=== PATIENT | female | born 1955 | race Caucasian/White ===

== ENCOUNTER 2018-04-20 00:09 | Inpatient (IN) | payer BC ==
[2018-04-20] VITALS (9 sets, daily range): BP systolic 138–170; BP diastolic 69–77
[~2018-04-20] VITALS: Ht 162.6 cm; Wt 121.2 kg
--- NOTE | 2018-04-20 00:20 | NUR ---
Pt antony s/p fall at home 16 hours ago. She also reported falling 2 weeks ago and ended up with a wound on her scalp treated in [facility] on 04/[address]. Pt further states she has been feeling weak and not been able to walk recently. She is A, O/4, complains of severe pain on her back and bilateral knees, on RA. Awaiting to be seen and evaluated by Dr. Spann.
--- NOTE | 2018-04-20 00:35 | NUR ---
HL 20g started on lac, blood drawn and sent to lab
--- NOTE | 2018-04-20 00:47 | NUR ---
EKG in progress
[2018-04-20 00:51] LABS: BASOPHILS % (AUTO) 0.9 % (0.0-2.0); EOSINOPHILS % (AUTO) 0.8 % (0.0-6.0); HEMATOCRIT 30 % (33-45); HEMOGLOBIN 9.7 g/dL (11.5-14.8); LYMPHOCYTES # (AUTO) 0.6 /CMM (0.8-4.8); LYMPHOCYTES % (AUTO) 16.7 % (20.0-44.0); MEAN CORPUSCULAR HGB CONC 33 g/dl (31.0-36.0); MEAN CORPUSCULAR VOLUME 88 fL (82-100); MONOCYTES # (AUTO) 0.6 /CMM (0.1-1.30); MONOCYTES % (AUTO) 16.7 % (2.0-12.0); NEUTROPHILS # (AUTO) 2.5 /CMM (1.8-8.9); NEUTROPHILS % (AUTO) 64.9 % (43.0-81.0); PLATELET COUNT (AUTO) 193 /CMM (150-450); RED BLOOD CELL COUNT(AUTO) 3.35 MIL/uL (4.0-5.2); WHITE BLOOD COUNT (AUTO) 3.9 K/uL (4.3-11.0)
--- NOTE | 2018-04-20 00:55 | NUR ---
Pt trasnported to Radiology for imaging
[2018-04-20 00:57] LABS: CALCIUM, SERUM 8.5 mg/dL (8.5-10.1); CREATININE 1.3 mg/dL (0.6-1.3); POTASSIUM 3.4 mmol/L (3.5-5.1)
[2018-04-20] MEDS ORDERED: HYDROMORPHONE INJ 0.5 MG/0.5 ML SYRINGE ONE (00:58)
[2018-04-20] MEDS ORDERED: HYDROMORPHONE 1 MG/1 ML DISP.SYRIN IV ONE (01:00)
[2018-04-20] MEDS ORDERED: BLOOD SUGAR DIAGNOSTIC 1 EACH STRIP IN ONE (01:00)
[2018-04-20] MEDS ORDERED: IV NS 0.9% 1,000 ML BAG IV ONE (01:00)
[2018-04-20 01:02] LABS: ALBUMIN 2.6 g/dL (3.4-5.0); BILIRUBIN,TOTAL 0.3 mg/dL (0.2-1.0)
[2018-04-20 01:12] LABS: LYMPHOCYTES % (MANUAL) 18 % (16-48); MONOCYTES % (MANUAL) 12 % (0-11.0)
[2018-04-20 01:13] LABS: NEUTROPHILS % (MANUAL) 70 (42-76)
--- NOTE | 2018-04-20 01:36 | NUR ---
Back from Radiology
--- NOTE | 2018-04-20 02:45 | NUR ---
Pt voided freely on the bedpan
--- NOTE | 2018-04-20 02:50 | NUR ---
Pt will be adnmitted to [facility], Rm 315 under [facility]. Pt notified
--- NOTE | 2018-04-20 03:03 | NUR ---
Report given to JOSE MARIA Rosas
[2018-04-20] MEDS ORDERED: ZOLPIDEM TARTRATE 5 MG TABLET PO PRN (03:30)
[2018-04-20] MEDS ORDERED: MAGNESIUM HYDROXIDE 30 ML UDC PO PRN (03:30)
[2018-04-20] MEDS ORDERED: MAG HYDROX/AL HYDROX/SIMETH 30 ML UDC PO PRN (03:30)
[2018-04-20] MEDS ORDERED: ONDANSETRON HCL/PF 4 MG/2 ML VIAL IVP PRN (03:30)
[2018-04-20] MEDS ORDERED: Z GUARD REMEDY 2 OZ OINT TP PRN (03:30)
[2018-04-20] MEDS ORDERED: hydrALAZINE HCL IV 20 MG VIAL ONE (03:43)
[2018-04-20] MEDS ORDERED: hydrALAZINE HCL IV 20 MG VIAL IV PRN (04:00)
--- NOTE | 2018-04-20 04:15 | NUR ---
TELE R ADMISSION NOTES ADMITTED FROM ER THIS 62 Y.O. FEMALE VIA GURNEY WITH DX OF GENERALIZED WEAKNESS AND MULTIPLE FALLS WITH IN THIRTY DAYS.ALERT,ORIENTED X4,ABLE TO VERBALIZED NEEDS.LIVES ALONE IN A [place],OBESE 267.4 POUNDS.WITH MULTIPLE SKIN ISSUES,PICTURES ON CHART.WITH SALINE LOCK LEFT AC INTACT AND PATENT.NOTED PITTING EDEMA ON BOTH LOWER EXTREMITIES.DENIES PAIN AT THE MOMENT.CALL LIGHT IN REACH,NEEDS ANTICIPATED.
--- NOTE | 2018-04-20 04:25 | NUR ---
Transported pt to tele via thais Crane on ACLS protocol in stable condition.
[2018-04-20] MEDS: IV NS 0.9% 1,000 ML IV PRN (06:00)
--- NOTE | 2018-04-20 06:00 | NUR ---
WATER MECHANIC NOTES STARTED ON IVF NS AT 75ML/HR RATE
[2018-04-20] MEDS: POTASSIUM CL. PREMIX PERIPHER. 50 ML IV SCH ×4 (06:16→09:45)
--- NOTE | 2018-04-20 06:16 | NUR ---
TRANSFORMER COIL WINDER NOTES STARTED ON POTASSIUM IV 10MEQ FOR K LEVEL OF 3.4.TO INFUSE 3 MORE BAGS OF 10 MEQ
[2018-04-20] MEDS: HYDROMORPHONE INJ 2 MG/ML DISP.SYRIN IV PRN ×3 (06:27→20:39)
--- NOTE | 2018-04-20 06:27 | NUR ---
TECHNICAL ADMINISTRATIVE ASSISTANT NOTES PAIN MANAGEMENT C/O MID LOWER BACK PAIN 10/10 ON ON PAIN SCALE,MEDICATED WITH DILAUDID 0.5MG IV ORDERED
--- NOTE | 2018-04-20 06:47 | NUR ---
REPLENISHMENT ANALYST NOTES SR-79 ON TELE MONITOR,HOLD BREAKFAST TILL SEEN BY CARDIO.WOUND CONSULT TRIGGER,PAIN MANAGEMENT ADMINISTERED.IN NO ACUTE DISTRESS.WILL ENDORSE TO DAY NURSE FOR SHAYNA.
[2018-04-20 07:25] LABS: BASOPHILS % (AUTO) 1.2 % (0.0-2.0); EOSINOPHILS % (AUTO) 0.8 % (0.0-6.0); HEMATOCRIT 29 % (33-45); HEMOGLOBIN 9.5 g/dL (11.5-14.8); LYMPHOCYTES # (AUTO) 0.8 /CMM (0.8-4.8); MEAN CORPUSCULAR HGB CONC 33 g/dl (31.0-36.0); MEAN CORPUSCULAR VOLUME 87 fL (82-100); MONOCYTES # (AUTO) 0.6 /CMM (0.1-1.30); MONOCYTES % (AUTO) 15.4 % (2.0-12.0); NEUTROPHILS # (AUTO) 2.4 /CMM (1.8-8.9); NEUTROPHILS % (AUTO) 62.6 % (43.0-81.0); PLATELET COUNT (AUTO) 190 /CMM (150-450); RED BLOOD CELL COUNT(AUTO) 3.28 MIL/uL (4.0-5.2); WHITE BLOOD COUNT (AUTO) 3.9 K/uL (4.3-11.0)
[2018-04-20] MEDS: PANTOPRAZOLE 40 MG TABLET.DR PO SCH (07:32)
[2018-04-20] MEDS: HYDROCODONE/APAP 5/325MG 1 EACH TABLET PO PRN (07:33)
--- NOTE | 2018-04-20 07:40 | NUR ---
TOWER TRUCK DRIVER OPENING NOTES RECEIVED PT LAYING IN BED, RESTING. PT IS A/O X4, AFEBRILE. RESPIRATIONS ARE EVEN AND UNLABORED, NOT IN ANY ACUTE DISTRESS NOTED. PUPILS ARE REACTIVE TO LIGHT, BILATERAL HAND MACHINE MOLDER SQUEEZE ARE STRONG. C/O PAIN 18/10 TO LOWER BACK, MEDICATED PT WITH NORCO 5/325 1 TAB PO. WILL NOTE EFFECTIVENESS. IV SITE TO LAC INTACT, NO INFILTRATION NOTED. DRESSING KEPT CLEAN AND DRY. SAFETY MEASURES ARE IN PLACE. INSTRUCTED PT TO USE CALL LIGHT WHEN ASSISTANCE IS NEEDED, CALL LIGHT IS LEFT WITHIN REACH. WILL MONITOR THROUGHOUT SHIFT FOR CONTINUITY OF CARE.
[2018-04-20 07:51] LABS: CALCIUM, SERUM 8.2 mg/dL (8.5-10.1); CREATININE 1.3 mg/dL (0.6-1.3); MAGNESIUM 1.4 mg/dL (1.8-2.4); PHOSPHORUS 2.3 mg/dL (2.5-4.9); POTASSIUM 3.1 mmol/L (3.5-5.1)
[2018-04-20] MEDS ORDERED: PANT40TA4 PO (08:50)
[2018-04-20] MEDS ORDERED: GABA-532 PO (08:50)
[2018-04-20] MEDS ORDERED: VENL75CA62 PO (08:50)
[2018-04-20] MEDS ORDERED: HYDR-3895 PO (08:50)
[2018-04-20] MEDS ORDERED: OXYC15TA2 PO (08:50)
[2018-04-20] MEDS ORDERED: METF-440 PO (08:50)
--- NOTE | 2018-04-20 11:00 | NUR ---
MS RN NOTES-- RECEIVED A CALL FROM [facility] IN PHARMACY, TO NOTIFY DR. MASTERSON IF WE NEED TO REPEAT K LEVEL AFTER KCL HAS BEEN COMPLETED. PER DR. MASTERSON, "NO NEED." LABS ORDERED FOR TOMORROW.
[2018-04-20] MEDS: Magnesium 1GM/D5W 100ML PREMIX 100 ML IV SCH ×4 (11:09→14:15)
[2018-04-20] MEDS ORDERED: K PHOS NEUTRAL 250 MG TABLET PO ONE (13:30)
--- NOTE | 2018-04-20 15:15 | NUR ---
MS RN NOTES-- REMINDED DR. MASTERSON RE: MED LIST REVIEW.
--- NOTE | 2018-04-20 16:24 | NUR ---
MS RN NOTES-- PT NOTED WITH TEMP OF 100.4. PER DR. MASTERSON, BLOOD CULTURE THEN GIVE TYLENOL AFTER. BLOOD CULTURES ORDERED.
[2018-04-20] MEDS: ACETAMINOPHEN 325 MG TABLET PO PRN (17:14)
--- NOTE | 2018-04-20 18:17 | NUR ---
MS RN CLOSING NOTES ALL DUE MEDS GIVEN, NEEDS MET AND ANTICIPATED. PT IS A/O X4, AFEBRILE. RESPIRATIONS ARE EVEN AND UNLABORED, NOT IN ANY ACUTE DISTRESS NOTED. DENIES ANY CHEST PAIN, SOB, N/V. IV SITE TO LAC INTACT, NO INFILTRATION NOTED. DRESSING KEPT CLEAN AND DRY. ECHO DONE WITH 70% EF, DR. MASTERSON MADE AWARE. SAFETY MEASURES ARE IN PLACE. ENCOURAGED PT TO DRINK FLUIDS TOLERATED. REMINDED PT TO USE CALL LIGHT WHEN ASSISTANCE IS NEEDED, CALL LIGHT IS LEFT WITHIN REACH. WILL ENDORSE TO NEXT SHIFT FOR CONTINUITY OF CARE.
--- NOTE | 2018-04-20 19:55 | NUR ---
MS/EN OPENING NOTES RECEIVED PATIENT IN BED, RESTING COMFORTABLY IN BED, REQUESTED SLEEPING PILL AT BEDTIME AND WITH PAIN BUT REFUSE ANY PAIN MEDICATION AT THIS TIME. REQUIRE ASSISTANCE FOR SAFETY. CALL LIGHTS WITHIN REACH, BED LOCKED, WILL MONITOR.ON IV FLUIDS AT 75 CC/HR, LEFT AC GAUGE 20 WITH NO S/S OF INFILTRATION, RECEIVED ENDORSEMENT FROM AM RN FOR SHAYNA. WILL MONITOR.
--- NOTE | 2018-04-20 21:00 | NUR ---
ms/rn notes PATIENT REQUESTED FOR PAIN MEDICATION, DILAUDID GIVEN 0.25ML/0.5MG IVP, ALSO REQUESTING TO INFORM MD ABOUT MEDICATION PANTAPROZOLE TO BE TAKEN BID, BUT TAKING MORE THAN 3 MONTHS, PER MD IF MORE THAN 3 MOS ADVISED NOT TO GIVE BID PANTOPROZOLE. PATIENT MADE AWARE.
[2018-04-20] MEDS ORDERED: VENLAFAXINE XR 75 MG CAP.SR.24H PO SCH (22:00)
--- NOTE | 2018-04-21 06:37 | NUR ---
315-1 MS/RN NOTE PATIENT IN BED, ABLE TO VERBALIZE NEEDS, ASSISTED WITH REPOSITION AND TURNING, USES BED LARA , KEPT SKIN INTACT AND DRY, RESPIRATIONS EVEN AND UNLABORED. SKIN WARM TO TOUCH, PROVIDED FLUIDS, BED LOCKED, CALL LIGHTS WITHIN REACH, WILL MONITOR.WILL ENDORSE TO AM RN FOR SHAYNA.
[2018-04-21 06:40] LABS: CREATININE 1.1 mg/dL (0.6-1.3); MAGNESIUM 2.1 mg/dL (1.8-2.4); POTASSIUM 3.5 mmol/L (3.5-5.1)
[2018-04-21 07:01] LABS: CHOLESTEROL 140 mg/dL (<200); HDL CHOLESTEROL 47 mg/dL (40-60); LDL 73 mg/dL (0-99); TRIGLYCERIDES 120 mg/dL (30-150)
--- NOTE | 2018-04-21 07:43 | NUR ---
MS RN OPENING NOTES RECEIVED PT LAYING IN BED, RESTING. PT IS A/O X4, AFEBRILE. RESPIRATIONS ARE EVEN AND UNLABORED, NOT IN ANY ACUTE DISTRESS NOTED. DENIES ANY CHEST PAIN, N/V, SOB. IV SITE TO LAC INTACT, NO INFILTRATION NOTED. DRESSING KEPT CLEAN AND DRY. IV FLUIDS RUNNING AT 75ML/HR, TOLERATING WELL. SAFETY MEASURES ARE IN PLACE. INSTRUCTED PT TO USE CALL LIGHT WHEN ASSISTANCE IS NEEDED, CALL LIGHT IS LEFT WITHIN REACH. WILL MONITOR THROUGHOUT SHIFT FOR CONTINUITY OF CARE.
[2018-04-21 08:00] VITALS: BP 150/79
[2018-04-21] MEDS: PANTOPRAZOLE 40 MG TABLET.DR PO SCH (08:12)
[2018-04-21] MEDS: HYDROMORPHONE INJ 2 MG/ML DISP.SYRIN IV PRN ×4 (08:12→22:44)
--- NOTE | 2018-04-21 08:15 | NUR ---
MS RN NOTES-- PT SEEN AND EXAMINED BY DR. VELÁSUQEZ W/ ORDERS FOR LOVENOX 30MG DAILY. READ BACK AND VERIFIED. ORDERS NOTED AND CARRIED OUT.
--- NOTE | 2018-04-21 10:22 | NUR ---
MS RN NOTES-- PT SEEN BY PHYSICAL THERAPIST AND PT WAS SEEN WALKING AROUND THE UNIT USING FWW.
[2018-04-21 16:00] VITALS: BP 155/77
[2018-04-21] MEDS ORDERED: TOPI100T38 PO (16:52)
[2018-04-21] MEDS ORDERED: BACL10TA PO (16:52)
--- NOTE | 2018-04-21 18:07 | NUR ---
MS RN CLOSING NOTES ALL DUE MEDS GIVEN, NEEDS MET AND ANTICIPATED. PT IS A/O X4, AFEBRILE. RESPIRATIONS ARE EVEN AND UNLABORED, NOT IN ANY ACUTE DISTRESS NOTED. DENIES ANY CHEST PAIN, SOB, N/V. IV SITE TO LAC INTACT, NO INFILTRATION NOTED. DRESSING KEPT CLEAN AND DRY. SAFETY MEASURES ARE IN PLACE. ENCOURAGED PT TO DRINK FLUIDS TOLERATED. REMINDED PT TO USE CALL LIGHT WHEN ASSISTANCE IS NEEDED, CALL LIGHT IS LEFT WITHIN REACH. WILL ENDORSE TO NEXT SHIFT FOR CONTINUITY OF CARE.
--- NOTE | 2018-04-21 19:59 | NUR ---
MS/RN OPENING NOTES RECEIVED PATIENT IN BED, AWAKE, ALERT X3, RESTING COMFORTABLY IN BED, RECEIVED PAIN MEDICATION EARLIER BEFORE THE START OD SHIFT BUT STILL IN PAIN, NOTED GRIMACE. PATIENT ABLE TO VERBALIZE NEEDS, SKIN WARM TO TOUCH, REQUIRE EXTENSIVE ASSISTANCE, INFORMED ABOUT MEDICATION FOR BED TIME AND MEDICATIONS ORDERED. CALL LIGHTS WITHIN REACH. BED LOCKED. WILL MONITOR.
[2018-04-21 20:00] VITALS: BP_SYST 120; BP_SYST 186; BP_DIAS 56; BP_DIAS 60
[2018-04-21] MEDS: ENOXAPARIN SODIUM 30 MG/0.3 ML DISP.SYRIN SQ SCH (20:19)
--- NOTE | 2018-04-21 20:30 | NUR ---
recheck blood pressure at 155/78
[2018-04-21] MEDS: hydrOXYzine PAMOATE 25 MG CAPSULE PO SCH (21:44)
[2018-04-21] MEDS: GABAPENTIN 100 MG CAPSULE PO SCH (21:45)
[2018-04-21] MEDS: VENLAFAXINE XR 75 MG CAP.SR.24H PO SCH (21:56)
[2018-04-22] MEDS: HYDROCODONE/APAP 5/325MG 1 EACH TABLET PO PRN ×4 (02:13→17:10)
[2018-04-22] MEDS: HYDROMORPHONE INJ 2 MG/ML DISP.SYRIN IV PRN ×4 (03:38→20:34)
[2018-04-22] MEDS: IV NS 0.9% 1,000 ML IV PRN ×2 (03:50→17:16)
--- NOTE | 2018-04-22 04:07 | NUR ---
ms/rn notes pain medication administered due to severe pain reported in lower back of [address] pain, tblood pressure check at 138/62. will monitor pain relief,
[2018-04-22 04:27] VITALS: BP 135/70
--- NOTE | 2018-04-22 06:00 | NUR ---
MS/RN NOTES PATIENT ABLE TO SLEEP FEW HOURS, ON PAIN management monitoring. RESPIRATIONS EVEN AND UNLABORED, ASSISTED WITH ALL NEEDS. BED LOCKED. CALL LIGHTS WITHIN REACH, WILL MONITOR.
[2018-04-22 07:14] LABS: BASOPHILS % (AUTO) 0.4 % (0.0-2.0); EOSINOPHILS % (AUTO) 0.5 % (0.0-6.0); HEMATOCRIT 30 % (33-45); HEMOGLOBIN 9.8 g/dL (11.5-14.8); LYMPHOCYTES # (AUTO) 1.5 /CMM (0.8-4.8); LYMPHOCYTES % (AUTO) 36.2 % (20.0-44.0); MEAN CORPUSCULAR HGB CONC 33 g/dl (31.0-36.0); MEAN CORPUSCULAR VOLUME 87 fL (82-100); MONOCYTES # (AUTO) 0.6 /CMM (0.1-1.30); MONOCYTES % (AUTO) 13.1 % (2.0-12.0); NEUTROPHILS # (AUTO) 2.1 /CMM (1.8-8.9); NEUTROPHILS % (AUTO) 49.8 % (43.0-81.0); PLATELET COUNT (AUTO) 158 /CMM (150-450); RED BLOOD CELL COUNT(AUTO) 3.42 MIL/uL (4.0-5.2); WHITE BLOOD COUNT (AUTO) 4.2 K/uL (4.3-11.0)
--- NOTE | 2018-04-22 07:39 | NUR ---
MS/RN OPENING NOTE PATIENT IN BED IN STABLE CONDITION. A/O X 3. NO SIGNS OF ACUTE DISTRESS. NO COMPLAIN OF PAIN OR DISCOMFORT. ALL NEEDS ATTENDED TO. CALL LIGHT WITHIN REACH. WILL CONTINUE TO MONITOR TO ENSURE SAFETY.
[2018-04-22 07:46] LABS: CALCIUM, SERUM 8.1 mg/dL (8.5-10.1)
[2018-04-22 08:00] VITALS: BP 166/86
[2018-04-22] MEDS: TOPIRAMATE 100 MG TABLET PO SCH ×3 (08:28→17:10)
[2018-04-22] MEDS: BACLOFEN (10 MG) 10 MG TABLET PO SCH ×3 (08:28→17:10)
[2018-04-22] MEDS: PANTOPRAZOLE 40 MG TABLET.DR PO SCH ×2 (08:28→17:10)
[2018-04-22] MEDS: ALBUTEROL FS 2.5 MG/3 ML VIAL.NEB NEB PRN ×3 (08:52→23:35)
[2018-04-22] MEDS ORDERED: PANTOPRAZOLE 40 MG TABLET.DR PO SCH (09:00)
[2018-04-22] MEDS: POTASSIUM CHLORIDE 20 MEQ TAB.PRT.SR PO SCH ×3 (10:11→12:45)
--- NOTE | 2018-04-22 10:20 | NUR ---
MS/RN PATIENT REFUSED NORCO FOR PAIN MEDS, AND REQUESTED FOR DILAUDID, NORCO ALREADY OPENED THEREFORE WASTED AND WITNESSED BY EMILI MOISE.
--- NOTE | 2018-04-22 12:05 | NUR ---
MS/RN SPOKE WITH SERENITY FROM [facility] AND VERIFIED PATIENT'S PROTONIX ORDER AND DOSAGE PER KATIE ITS PROTONIX 40MG PO BID AC MEALS. DR. MASTERSON NOTIFIED REGARDING ORDERS.
[2018-04-22 15:58] VITALS: BP 151/80
--- NOTE | 2018-04-22 18:25 | NUR ---
MS/RN CLOSING NOTE PATIENT IN BED IN STABLE CONDITION. A/O X 4. NO SIGNS OF ACUTE DISTRESS. NO COMPLAIN OF PAIN OR DISCOMFORT. ALL NEEDS ATTENDED TO. CALL LIGHT WITHIN REACH. WILL ENDORSE TO NEXT SHIFT FOR CONTINUITY OF CARE.
--- NOTE | 2018-04-22 19:40 | NUR ---
MS/RN OPENING NOTES PT RECEIVED AWAKE, HOB ELEVATED IN BED. ON ROOM AIR, BREATHING EVEN AND UNLABORED. DENIES SOB. PAIN TO LOWER BACK NOTED TO BE 12/10. MADE AWARE THAT PAIN MEDS NOT DUE YET, BUT ONCE DUE AND V/S STABLE, CAN HAVE PRN DILAUDID PER REQUEST. VERBALIZED UNDERSTANDING. IV TO RFA PATENT AND INTACT RUNNING IVF ORDERED. BED IN LOW/LOCKED POSITION WITH CALL LIGHT IN REACH, BILATERAL UPPER SIDE RAILS IN PLACE. WILL CONTINUE TO MONITOR
[2018-04-22 20:00] VITALS: BP 136/73
[2018-04-22] MEDS: VENLAFAXINE XR 75 MG CAP.SR.24H PO SCH (21:46)
[2018-04-22] MEDS: hydrOXYzine PAMOATE 25 MG CAPSULE PO SCH (21:46)
[2018-04-22] MEDS: ENOXAPARIN SODIUM 30 MG/0.3 ML DISP.SYRIN SQ SCH (21:48)
--- NOTE | 2018-04-22 22:30 | NUR ---
MS/RN NOTES PT ABLE TO AMBULATE TO BATHROOM WITH WALKER AND ASSIST.
--- NOTE | 2018-04-22 23:15 | NUR ---
MS/RN NOTES PT NOTED WITH WHEEZES AND C/O SOB. RT CALLED FOR PRN BREATHING TX
[2018-04-22] MEDS: GABAPENTIN 100 MG CAPSULE PO SCH (23:32)
[2018-04-23] MEDS: HYDROMORPHONE INJ 2 MG/ML DISP.SYRIN IV PRN ×3 (00:43→22:45)
--- NOTE | 2018-04-23 05:30 | NUR ---
[facility] (SISTER)= [phone] (KAROLYN GREWAL)
[2018-04-23 06:27] LABS: BASOPHILS % (AUTO) 0.2 % (0.0-2.0); HEMATOCRIT 32 % (33-45); HEMOGLOBIN 10.5 g/dL (11.5-14.8); LYMPHOCYTES # (AUTO) 1.6 /CMM (0.8-4.8); LYMPHOCYTES % (AUTO) 33.3 % (20.0-44.0); MEAN CORPUSCULAR HGB CONC 33 g/dl (31.0-36.0); MEAN CORPUSCULAR VOLUME 88 fL (82-100); MONOCYTES # (AUTO) 0.4 /CMM (0.1-1.30); MONOCYTES % (AUTO) 9.2 % (2.0-12.0); NEUTROPHILS # (AUTO) 2.7 /CMM (1.8-8.9); NEUTROPHILS % (AUTO) 56.3 % (43.0-81.0); PLATELET COUNT (AUTO) 193 /CMM (150-450); WHITE BLOOD COUNT (AUTO) 4.8 K/uL (4.3-11.0)
[2018-04-23 06:40] LABS: CALCIUM, SERUM 8.3 mg/dL (8.5-10.1); CREATININE 1.2 mg/dL (0.6-1.3); POTASSIUM 3.4 mmol/L (3.5-5.1)
--- NOTE | 2018-04-23 07:45 | NUR ---
MS/RN CLOSING NOTES PT WITH EYES CLOSED. OPENS TO NAME, HOB ELEVATED. REMAINS ON ROOM AIR, BREATHING EVEN AND UNLABORED. DENIES SOB AND PAIN AT THIS TIME. IV TO RFA PATENT AND INTACT RUNNING IVF ORDERED. NO SIGNIFICANT CHANGES OVERNIGHT. ALL NEEDS MET. BED IN LOW/LOCKED POSITION WITH CALL LIGHT IN REACH, BILATERAL UPPER SIDE RAILS IN PLACE. ENDORSED TO DAY SHIFT RN SHAYNA.
--- NOTE | 2018-04-23 07:45 | NUR ---
MS RN Opening Notes 312-1 Patient asleep, resting in bed. Alert and oriented x 4, able to make needs known. No complaints or signs of pain at this time. Respirations even and unlabored on room air, no acute distress noted. Peripheral IV to the right forearm 20 gauge, intact, and infusing NS at 75 mL/hr. Updated patient on current plan of care and safety measures. Safety and fall precautions in place: bed in lowest and locked position, side rails up x2, bed alarm on, call light and personal possessions within reach. Will continue to monitor and intervene as needed.
[2018-04-23 08:00] VITALS: BP 148/79
[2018-04-23] MEDS: BACLOFEN (10 MG) 10 MG TABLET PO SCH ×3 (08:20→16:12)
[2018-04-23] MEDS: PANTOPRAZOLE 40 MG TABLET.DR PO SCH ×2 (08:20→16:12)
[2018-04-23] MEDS: TOPIRAMATE 100 MG TABLET PO SCH ×3 (08:21→16:12)
[2018-04-23] MEDS: HYDROCODONE/APAP 5/325MG 1 EACH TABLET PO PRN ×2 (08:25→16:12)
[2018-04-23] MEDS ORDERED: POTASSIUM CHLORIDE 20 MEQ TAB.PRT.SR PO ONE (09:00)
[2018-04-23] MEDS: IV NS 0.9% 1,000 ML IV PRN (09:23)
[2018-04-23 09:46] LABS: BAND % (MANUAL) 3 % (0.0-5.0); EOSINOPHILS % (MANUAL) 1 % (0-4); LYMPHOCYTES % (MANUAL) 33 % (16-48); MONOCYTES % (MANUAL) 7 % (0-11.0); MYELOCYTES % 1 % (0-0); NEUTROPHILS % (MANUAL) 55 (42-76)
[2018-04-23] MEDS: ALBUTEROL FS 2.5 MG/3 ML VIAL.NEB NEB PRN ×2 (15:13→22:24)
[2018-04-23 16:00] VITALS: BP 168/79
--- NOTE | 2018-04-23 19:00 | NUR ---
MS RN Closing Notes 312-1 Patient asleep, resting in bed. Alert and oriented x 4, able to make needs known. No complaints or signs of pain at this time. Respirations even and unlabored on room air, no acute distress noted. Peripheral IV to the right forearm 20 gauge, intact, and infusing NS at 75 mL/hr. All due medications given as ordered. Activity and ambulation as tolerated. Updated patient on current plan of care and safety measures. Safety and fall precautions in place: bed in lowest and locked position, side rails up x2, bed alarm on, call light and personal possessions within reach. Will endorse to warehouse supervisor 3rd shift RN for continuity of care.
--- NOTE | 2018-04-23 19:30 | NUR ---
MS/RN OPENING NOTES PT AWAKE, HOB ELEVATED, RESTING COMFORTABLY IN BED. A/OX3. ON ROOM AIR, BREATHING EVEN AND UNLABORED. IN NO ACUTE DISTRESS. DENIES SOB AND PAIN AT THIS TIME. IV TO RFA PATENT AND INTACT RUNNING IVF ORDERED. BED IN LOW/LOCKED POSITION WITH CALL LIGHT IN REACH. BILATERAL UPPER SIDE RAILS IN PLACE. WILL CONTINUE TO MONITOR
[2018-04-23 19:50] VITALS: BP 174/81
[2018-04-23 20:00] VITALS: BP 169/47
[2018-04-23 20:10] VITALS: BP 169/77
[2018-04-23] MEDS: VENLAFAXINE XR 75 MG CAP.SR.24H PO SCH (21:46)
[2018-04-23] MEDS: hydrOXYzine PAMOATE 25 MG CAPSULE PO SCH (21:46)
[2018-04-23] MEDS: GABAPENTIN 100 MG CAPSULE PO SCH (21:46)
[2018-04-23] MEDS: ENOXAPARIN SODIUM 30 MG/0.3 ML DISP.SYRIN SQ SCH (21:54)
[2018-04-24 06:13] LABS: BASOPHILS % (AUTO) 0.3 % (0.0-2.0); EOSINOPHILS % (AUTO) 1.2 % (0.0-6.0); HEMATOCRIT 28 % (33-45); HEMOGLOBIN 9.1 g/dL (11.5-14.8); LYMPHOCYTES # (AUTO) 1.9 /CMM (0.8-4.8); MEAN CORPUSCULAR HGB CONC 33 g/dl (31.0-36.0); MEAN CORPUSCULAR VOLUME 88 fL (82-100); MONOCYTES # (AUTO) 0.5 /CMM (0.1-1.30); MONOCYTES % (AUTO) 8.1 % (2.0-12.0); NEUTROPHILS # (AUTO) 4.1 /CMM (1.8-8.9); NEUTROPHILS % (AUTO) 62.4 % (43.0-81.0); PLATELET COUNT (AUTO) 203 /CMM (150-450); RED BLOOD CELL COUNT(AUTO) 3.19 MIL/uL (4.0-5.2); WHITE BLOOD COUNT (AUTO) 6.6 K/uL (4.3-11.0)
[2018-04-24] MEDS: IV NS 0.9% 1,000 ML IV PRN (06:32)
[2018-04-24 06:38] LABS: CALCIUM, SERUM 8.1 mg/dL (8.5-10.1); CREATININE 1.1 mg/dL (0.6-1.3); POTASSIUM 3.6 mmol/L (3.5-5.1)
--- NOTE | 2018-04-24 07:00 | NUR ---
MS/RN CLOSING NOTES PT RESTING COMFORTABLY IN BED. A/OX3. ON ROOM AIR, BREATHING EVEN AND UNLABORED. IN NO ACUTE DISTRESS. DENIES SOB AND PAIN AT THIS TIME. IV TO RFA PATENT AND INTACT RUNNING IVF ORDERED. AMBULATED IN HALLWAY WITH FWW AND STANDBY ASSIST. REFUSED CLEANSING AND DRESSING TO LEFT ANTECUBITAL. WOUND CONSULT ORDERED. NO SIGNIFICANT CHANGES OVERNIGHT. BED IN LOW/LOCKED POSITION WITH CALL LIGHT IN REACH. BILATERAL UPPER SIDE RAILS IN PLACE. WILL ENDORSE TO DAY SHIFT RN SHAYNA.
[2018-04-24 08:00] VITALS: BP 148/79
--- NOTE | 2018-04-24 08:00 | NUR ---
m/s store host: initial assessment received pt in bed awake, a/ox3; able to ambulate using fww. no c/o pain or any discomfort. pt refusing iv fluids. instructed to call for assistance. will continue to monitor.
--- NOTE | 2018-04-24 08:15 | NUR ---
m/s principal process engineer: md visit seen and examined by dr. davis and informed her that pt is going to be discharge to snf today. pt verbalized understanding. martha (case management) notified and made aware.
[2018-04-24] MEDS: BACLOFEN (10 MG) 10 MG TABLET PO SCH ×3 (08:52→17:16)
[2018-04-24] MEDS: TOPIRAMATE 100 MG TABLET PO SCH ×3 (08:53→17:16)
[2018-04-24] MEDS: PANTOPRAZOLE 40 MG TABLET.DR PO SCH ×2 (08:53→17:16)
--- NOTE | 2018-04-24 12:11 | NUR ---
WOUND CARE CONSULT: PT SEEN FOR LEFT ANTECUBITAL AREA SKIN TEAR, FROM PREVIOUS TAPE PER PT REPORT. NO SIGN OF INFECTION NOTED. RECOMMENDATIONS MADE FOR WOUND CARE AND SKIN PROTECTION. DISCUSSED WITH NURSING STAFF. PT SITTING UP IN CHAIR AND EATING LUNCH AT THIS TIME. SKIN ASSESSMENT LIMITED TO LEFT ARM AT THIS TIME. MULTIPLE ADMISSION PHOTOS NOTED IN CHART WITH BRUISING AND DRY ABRASIONS AND SCALP LACERATION WITH MAME. WILL SEE PRN. CURRENT LIGIA SCORE IS 19. PT IS CONTINENT AND AMBULATORY PER NURSING STAFF. MD IN AGREEMENT WITH PLAN OF CARE. Addendum: 04/24/18 at 1214 by KATIE DIXON WNDNU Amended: Links added.
[2018-04-24] MEDS: HYDROCODONE/APAP 5/325MG 1 EACH TABLET PO PRN ×2 (12:30→20:53)
[2018-04-24 16:00] VITALS: BP 167/84
--- NOTE | 2018-04-24 16:00 | NUR ---
m/s casting cleaner: notes f/u made to case management re: d'c planning to snf today and informed me that we need still authorization from her insurance and it will probably tomorrow per martha. pt made aware. cn made aware.
--- NOTE | 2018-04-24 18:00 | NUR ---
m/s bi data architect: notes pt still refusing iv fluids. no c/o pain or any discomfort. for d'c planning tomorrow. needs attended. will continue to monitor.
--- NOTE | 2018-04-24 19:00 | NUR ---
m/s press manager: notes bedside report given to sanjeev (rn) for continuity of care.
--- NOTE | 2018-04-24 19:50 | NUR ---
CALLED REGARDING BLOOD PRESSURE 174/81 HR 71 WITH NEW ORDER TO GIVE APRESOLINE IX ORDER
[2018-04-24 20:00] VITALS: BP 174/81
[2018-04-24] MEDS ORDERED: hydrALAZINE HCL IV 20 MG VIAL IV ONE (20:00)
[2018-04-24 20:24] VITALS: BP 156/77
[2018-04-24] MEDS: ENOXAPARIN SODIUM 30 MG/0.3 ML DISP.SYRIN SQ SCH (20:52)
[2018-04-24] MEDS: hydrOXYzine PAMOATE 25 MG CAPSULE PO SCH (21:57)
[2018-04-24] MEDS: GABAPENTIN 100 MG CAPSULE PO SCH (21:57)
[2018-04-24] MEDS: VENLAFAXINE XR 75 MG CAP.SR.24H PO SCH (21:57)
[2018-04-25] VITALS (7 sets, daily range): BP systolic 150–170; BP diastolic 77–97
[2018-04-25] MEDS: HYDROCODONE/APAP 5/325MG 1 EACH TABLET PO PRN ×4 (01:24→20:17)
--- NOTE | 2018-04-25 05:58 | NUR ---
CLOSING NOTES: ALERT AND ORIENTATED THIS 12 HOURS. AMBULATES WITH NURSE STANDBY..STEADY ON HER FEET. CONTINENT. VERBALIZES HER NEEDS. MEDICATED WITH 1 TAB NORCO X2 ONCE FOR H/A ONCE FOR BACKACHE AND BOTH TIMES EFFECTIVE. BED ALARM ON WHEN IN BED. SHE IS GOOD ABOUT NOT GETTING OUT OF BED W/O ASSIST. HEAD SUTURES SITE CLEAN HEALING. BLOOD PRESSURE DOWN TO 154/97 FROM 174/72 AFTER APRESOLINE. NOTED APRESOLINE WILL BE STARTED ROUTINE THIS AM.
--- NOTE | 2018-04-25 07:20 | NUR ---
RN OPENING NOTES RECEIEVD PATIENT IN BED RESTING. A/OX3, ABLE TO MAKE NEEDS KNOWN. NOT IN ANY FORM OF DISTRESS, NO SOB. COMPLAINTS OF HEADACHE, WILL ADMINISTER PAIN MEDICATION ORDERED. IV ACCESS INTACT AND PATENT. KEPT PATIENT SAFE AND COMFORTABLE. BED IN LOW/LOCKED POSITION, SIDERAILS UPX2, CALL LIGHT IN REACH. WILL CONTINUE TO MONITOR ACCORDINGLY.
[2018-04-25] MEDS: TOPIRAMATE 100 MG TABLET PO SCH ×3 (08:14→18:39)
[2018-04-25] MEDS: BACLOFEN (10 MG) 10 MG TABLET PO SCH ×3 (08:15→18:40)
[2018-04-25] MEDS: PANTOPRAZOLE 40 MG TABLET.DR PO SCH ×2 (08:15→18:40)
[2018-04-25] MEDS: LISINOPRIL (20MG) 20 MG TABLET PO SCH (08:16)
--- NOTE | 2018-04-25 13:00 | NUR ---
RN NOTES: DC PHOTOS PICTURES TAKEN ON HEAD AND ARMS ONLY. PATIENT REFUSED SKIN PHOTOS TO BE TAKEN ON OTHER PARTS OF THE BODY.
[2018-04-25] MEDS ORDERED: LISI20TA61 PO (15:23)
--- NOTE | 2018-04-25 17:00 | NUR ---
RN NOTES REPORT GIVEN TO JOSE MARIA ZAPATA FROM [facility].
--- NOTE | 2018-04-25 17:30 | NUR ---
RN NOTES SNF WONT ACCEPT PATIENT DUE TO BP= 153/91. SNF WILL ONLY ACCEPT WITH CS=970g. NOTIFIED URVASHI ESCOBAR NP, NEW ORDER OF NORVASC 5MG PO ONE TIME NOTED AND WILL CARRY OUT.
--- NOTE | 2018-04-25 18:00 | NUR ---
IV ACCESS NOT PATENT, REMOVED, APPLIED PRESSURE, NO COMPLICATIONS. WILL MONITOR ACCORDINGLY
[2018-04-25] MEDS ORDERED: AMLODIPINE BESYLATE 5 MG TABLET PO ONE (18:30)
--- NOTE | 2018-04-25 19:00 | NUR ---
RN CLOSING NOTES PATIENT IN STABLE CONDITION. ALL NEEDS ATTENDED AND PROVIDED. ALL DUE MEDICATIONS ADMINISTERED ORDERED. KEPT PATIENT SAFE AND COMFORTABLE. BED IN LOW/LOCKED POSIITON, SIDERAILS UPX2, CALL LIGHT IN REACH. ENDORSED TO NIGHT RN FOR SHAYNA. PATIENT FOR DISCHARGE. ON WILL CALL
--- NOTE | 2018-04-25 19:30 | NUR ---
RN NOTES RECEIVED PATIENT AWAKE IN BED, ALL SAFETY MEASURES IN PLACED, ASPIRATION PRECAUTION OBSERVED, NO SIGNS OF ACUTE DISTRESS NOTED, WILL MONITOR BP ACCORDINGLY FOR DISCHARGE, ON WILL CALL STATUS.
--- NOTE | 2018-04-25 20:00 | NUR ---
RN NOTES PATIENT'S BP IS 159/79MMHG, SHANIQUA DE LA ROSA MADE AWARE,NO NEW ORDERS,AT THIS TIME.
--- NOTE | 2018-04-25 20:24 | NUR ---
RN NOTES PATIENT C/O GENERALIZED PAIN 9/ NORCO GIVEN, WILL CONTINUE TO MONITOR.
[2018-04-25] MEDS: VENLAFAXINE XR 75 MG CAP.SR.24H PO SCH (21:44)
[2018-04-25] MEDS: ENOXAPARIN SODIUM 30 MG/0.3 ML DISP.SYRIN SQ SCH (21:44)
[2018-04-25] MEDS: GABAPENTIN 100 MG CAPSULE PO SCH (21:44)
[2018-04-25] MEDS: hydrOXYzine PAMOATE 25 MG CAPSULE PO SCH (21:44)
[2018-04-25] MEDS: ACETAMINOPHEN 325 MG TABLET PO PRN (23:45)
[2018-04-26 00:18] VITALS: BP_SYST 145; BP_DIAS 78; BP_DIAS 98
--- NOTE | 2018-04-26 07:25 | NUR ---
MS RN OPENING NOTES PT IN BED, AWAKE, ALERT/ORIENTED X4. IN NO RESPIRATORY DISTRESS. IN MODERATE PAIN VERBALIZED. WILL OFFER PAIN MEDICATION ORDERED. NO IV LINE NOTED. BED IN LOW, LOCKED POSITION WITH SR X2. WILL CONTINUE PLAN OF CARE.
--- NOTE | 2018-04-26 07:29 | NUR ---
RN NOTES PATIENT AWAKE IN BED, ALL SAFETY MEASURES IN PLACED, ASPIRATION PRECAUTION OBSERVED, NO SIGNS OF ACUTE DISTRESS NOTED, ALL NEEDS ATTENDED, NO NEW COMPLAINTS MADE, ENDORSED.
[2018-04-26 08:00] VITALS: BP 165/83
[2018-04-26] MEDS: BACLOFEN (10 MG) 10 MG TABLET PO SCH ×3 (08:43→16:11)
[2018-04-26] MEDS: PANTOPRAZOLE 40 MG TABLET.DR PO SCH ×2 (08:43→16:10)
[2018-04-26] MEDS: TOPIRAMATE 100 MG TABLET PO SCH ×3 (08:43→16:10)
[2018-04-26] MEDS: LISINOPRIL (20MG) 20 MG TABLET PO SCH (08:44)
[2018-04-26] MEDS: HYDROCODONE/APAP 5/325MG 1 EACH TABLET PO PRN ×2 (08:47→13:24)
[2018-04-26] MEDS ORDERED: AMLODIPINE BESYLATE 5 MG TABLET PO SCH (10:00)
[2018-04-26] MEDS ORDERED: AMLO5TAB4 PO (10:01)
[2018-04-26 11:10] VITALS: BP 150/80
--- NOTE | 2018-04-26 17:15 | NUR ---
MS TAVERN CAR ATTENDANT NOTES PT TO DISCHARGE TO SNF [facility], PREPARED PER TECHNICAL SUPPORT DIRECTOR CC. PT A/OX4. PT TOLERATING ROOM AIR WITHOUT DISTRESS. DESCRIBED PAIN MANAGEABLE AT THIS MOMENT. RN REVIEWED DISCHARGE INSTRUCTIONS, BELONGING LIST, MEDICATIONS TO CONTINUE AT SNF; SIGNED BY PT WITH UNDERSTANDING OF GIVEN INSTRUCTIONS. PT WITH ALL BELONGINGS AND DOCUMENT SIGNED. PT VERBALIZED INTENT TO COMPLY WITH PLAN OF CARE. PT LEFT THE UNIT WITHOUT ANY CONCERNS OR QUESTIONS AND THANKFUL FOR THE CARE GIVEN BY STAFFS. REPORT WAS GIVEN BY TECHNICAL SUPPORT DIRECTOR CC TO SNF AT START OF SHIFT 0830. SNF AGREED TO RECEIVED PT WITH SBP OF 150S. PT TRANSPORTED VIA GURNEY WITH PARTS ADMINISTRATOR.
== END 2018-04-26 17:10 | DRG 640 ==
LOC: ER 00:11 → TELE 02:05 → MED 08:43
PROVIDERS: ADMIT Family Medicine; ATTEND Family Medicine
DX: E86.0 Dehydration (principal); R53.2 Functional quadriplegia; F33.2 Major depressive disorder, recurrent severe without psychotic features; E44.0 Moderate protein-calorie malnutrition; Z68.42 Body mass index [BMI] 45.0-49.9, adult; W19.XXXA Unspecified fall, initial encounter; I11.0 Hypertensive heart disease with heart failure; Z87.11 Personal history of peptic ulcer disease; I50.9 Heart failure, unspecified; M48.061 Spinal stenosis, lumbar region without neurogenic claudication; D63.8 Anemia in other chronic diseases classified elsewhere; Z74.01 Bed confinement status; K25.9 Gastric ulcer, unspecified as acute or chronic, without hemorrhage or perforation; E88.09 Other disorders of plasma-protein metabolism, not elsewhere classified; E83.51 Hypocalcemia; E83.42 Hypomagnesemia; E87.6 Hypokalemia; I27.20 Pulmonary hypertension, unspecified; Z88.2 Allergy status to sulfonamides; E66.01 Morbid (severe) obesity due to excess calories; F41.9 Anxiety disorder, unspecified; Y93.9 Activity, unspecified; Y92.009 Unspecified place in unspecified non-institutional (private) residence as the place of occurrence of the external cause
CPT/HCPCS: 36415; 70450-TC; 71045-TC; 72110-TC; 73564-TC; 80048-TC; 80053-TC; 80061-TC; 82550-TC; 82962-TC; 83735-TC; 84100-TC; 84484-TC; 85025-TC; 87040-TC; 87081-TC; 93307-TC; 94799-TC; 97110-TC; 97116-TC; 97530-TC; G0378; J0360; J1170; J1650; J3475; J3480; J7030; Q0177